=== PATIENT | male | born 1950 | race Caucasian/White ===

== ENCOUNTER → 2020-08-18 | Outpatient (CLI) | payer MEDICARE, OTHER ==
--- NOTE | 2020-08-24 07:05 | MR ---
EXAMINATION TYPE: MR Prostate wo/w con DATE OF EXAM: 08/18/2020 COMPARISON: None. INDICATION: Prostate cancer per order, high PSA level per order. PSA: 8.5 ng/ml on July 07, 2020 Recent Biopsy and Date: No prior biopsies. Pathology Report (If Applicable): TECHNIQUE: Examination was performed using a 3T MRI without an endorectal coil. Multiparametric imaging was perf ormed with T2 mutliplanar sequences, axial diffusion weighted imaging and dynamic contrast enhanced i maging, utilizing 11.5 mL intravenous Gadavist gadolinium contrast. FINDINGS: There is no clinically significant cancer identified. PROSTATE VOLUME: 6.2 cm SI x 5.3 cm AP x 6.8 cm LR Vol= 117.0 cc Predicted PSA equals 14.04 PSA DENSITY: 0.072 ng/ml/cc Markedly enlarged prostate gland with dominant heterogeneous enlarged transitional zone. Peripheral z one shows areas of indistinct mild to moderate hypointensity on the ADC mapping without areas of rest ricted diffusion throughout the right aspect involving the lateral and medial segments. No areas of m oderate to severe hypointensity on ADC mapping. Transitional zone shows overall heterogeneity. No distinct lesions of low T2 signal noted. Prostate capsule is maintained. Seminal vesicles appear within normal limits. Few adjacent prominent lymph nodes, largest left superior posterior aspect measures 8 x 4 mm. Bladder shows poor distention with moderate wall thickening and mild to moderate diffuse trabeculation. Findings consistent with pr oduct of outlet obstruction related to enlarged prostate gland. No free fluid. Visualized osseous str uctures are intact. IMPRESSION: A focus of clinically significant cancer is not identified. Highest Assessment Category: 2 MRI Stage: T0 N0 M0 based on review of pelvic images. False negative rates for MRI range from 5-20% depending on risk profile. Assessment Categories: 1 ? Very low (clinically significant cancer is highly unlikely to be present) 2 ? Low (clinically significant cancer is unlikely to be present) 3 ? Intermediate (the presence of clinically significant cancer is equivocal) 4 ? High (clinically significant cancer is likely to be present) 5 ? Very high (clinically significant cancer is highly likely to be present) Locations:
== END | disposition home or self-care (01) ==
LOC: RADMRIMAIN 13:17
PROVIDERS: ATTEND Urology
DX: C61 Malignant neoplasm of prostate (principal)
CPT/HCPCS: 72197; A9585

== ENCOUNTER → 2021-09-21 | Outpatient (CLI) | payer MEDICARE, OTHER ==
--- NOTE | 2021-09-22 10:54 | MR ---
EXAMINATION TYPE: MR Prostate wo/w con DATE OF EXAM: 09/21/2021 COMPARISON: Prior prostate MRI August 18, 2020 INDICATION: Prostate cancer PSA: 6.0 ng/ml on September 08, 2020 down from 8.5 on July 07, 2020 and was 6.1 on March 10, 2020. Recent Biopsy and Date: April 13, 2020 Pathology Report (If Applicable): Adenocarcinoma [place] grade 3+3 = 6 involving less than 5% of tiss ue right lateral base. TECHNIQUE: Examination was performed using a 3T MRI without an endorectal coil. Multiparametric imaging was perf ormed with T2 mutliplanar sequences, axial diffusion weighted imaging and dynamic contrast enhanced i maging, utilizing 13 mL intravenous Gadavist gadolinium contrast. FINDINGS: Persistent enlarged prostate gland with hypertrophic central transitional zone. PROSTATE VOLUME: 6.2 cm SI x 4.9 cm AP x 6.7 cm LR Vol= 87.0 cc Predicted PSA equals 10.44 PSA DENSITY: 0.07 ng/ml/cc Peripheral zone shows areas of indistinct mild to moderate hypointensity on the ADC mapping without a reas of restricted diffusion throughout the right and left aspects greater on the right involving mid to basal segments with areas of T2 hypointensity. No areas of moderate to severe hypointensity on AD C mapping or increased signal on diffusion-weighted imaging. Transitional zone redemonstrates overall heterogeneity. No distinct new or enlarging lesions of low T 2 signal noted. Prostate capsule is maintained. Seminal vesicles symmetric somewhat small in size. Few adjacent promi nent lymph nodes, largest left superior posterior aspect measures 8 x 4 mm. Is stable axial image 23. Bladder shows poor distention with [id number] moderate wall thickening and mild to moderate di ffuse trabeculation. Findings consistent with product of outlet obstruction related to enlarged prost ate gland. No free fluid. Visualized osseous structures are intact. IMPRESSION: Enlarged prostate gland redemonstrated. A new focus of clinically significant cancer is not identified. Highest Assessment Category: 2 MRI Stage: T1c N0 M0 based on review of pelvic images. False negative rates for MRI range from 5-20% depending on risk profile. Assessment Categories: 1 ? Very low (clinically significant cancer is highly unlikely to be present) 2 ? Low (clinically significant cancer is unlikely to be present) 3 ? Intermediate (the presence of clinically significant cancer is equivocal) 4 ? High (clinically significant cancer is likely to be present) 5 ? Very high (clinically significant cancer is highly likely to be present)
== END | disposition home or self-care (01) ==
LOC: RADMRIMAIN 11:16
PROVIDERS: ATTEND Urology
DX: N40.0 Benign prostatic hyperplasia without lower urinary tract symptoms (principal)
CPT/HCPCS: 72197; A9585

== ENCOUNTER → 2023-07-12 | Outpatient (CLI) | payer MEDICARE ==
--- NOTE | 2023-07-13 09:37 | MR ---
EXAMINATION TYPE: MR Prostate wo/w con DATE OF EXAM: 07/12/2023 9:13 AM COMPARISON: 09/21/2021, 08/18/2020 CLINICAL INDICATION:Male, 73 years old with history of C61 MALIGNANT NEOPLASM OF PROSTATE; Elevated P SA TECHNIQUE: Multi-planar, multi-sequence imaging of the pelvis is performed prior to and following the uncomplicated administration of bolus intravenous gadolinium. CONTRAST: 11 [facility] Interpretive Criteria: PI-RADS v2.1 SERUM PSA: 7.6 on March 2023. SURGICAL PATHOLOGY: No data available. FINDINGS: Prostatic dimensions: 6.7 x 7.1 x 5.4 cm. Ellipsoid Volume:134.50 (PSA density=0.06 ng/mL/mL) CENTRAL GLAND (Central and Transition Zones/CZ+TZ): Multiple bilateral, heterogenous appearing hypertrophic stromal nodules, without suspicious lesion. M edian lobe hypertrophy with protrusion into the base of the bladder. (PI-RADS 2) PERIPHERAL ZONE (PZ): Bilateral linear, indistinct wedgelike areas of low ADC, and low T2 signal, No evidence of masslike a bnormality, or localized perfusional hypervascularity, to further suggest a focus of clinically signi ficant prostate cancer. (PI-RADS 2) SEMINAL VESICLES (SV): Symmetric and unremarkable. PERIPROSTATIC TISSUES: Unremarkable. LYMPH NODES: No enlarged pelvic lymph node. Stable lymph nodes in the bilateral pelvic sidewalls back to at least 08/18/2020. REMAINING PELVIS: Bladder wall is within normal limits given distention. No abnormal free or organized intrapelvic fluid collection. No pathologic bowel dilation or mural thickening. Bilateral fat containing inguinal hernias. OSSEOUS STRUCTURES: No suspicious osseous abnormality. IMPRESSION: 1. No specific features for high-risk prostate cancer. Maximum PI-RADS score: 2. 2. Substantial BPH, estimated gland volume 134.50 mL. 3. No suspicious osseous lesion. No lymphadenopathy. No evidence of prostate adenocarcinoma involving the periprostatic tissues.
== END | disposition home or self-care (01) ==
LOC: RADMRIMAIN 07:45
PROVIDERS: ATTEND Urology
DX: C61 Malignant neoplasm of prostate (principal); N40.1 Benign prostatic hyperplasia with lower urinary tract symptoms; R97.20 Elevated prostate specific antigen [PSA]; R35.0 Frequency of micturition
CPT/HCPCS: 72197; A9585